=== PATIENT | female | born 1985 | race American Indian/Alaskan Native ===

== ENCOUNTER 2021-11-11 12:47 | Outpatient (CLI) | payer OTHER | END 2021-11-11 15:51 | disposition home or self-care (01) | LOC: LAB 12:47 → APU 15:29 → LAB 15:51 | PROVIDERS: ATTEND Obstetrics & Gynecology | DX: O26.893 Other specified pregnancy related conditions, third trimester (principal); O09.523 Supervision of elderly multigravida, third trimester; Z67.11 Type A blood, Rh negative; Z3A.29 29 weeks gestation of pregnancy | CPT/HCPCS: 86850; 86900; 86901; 96372; J2790 ==